=== PATIENT | male | born 1945 | race Caucasian/White ===

== ENCOUNTER 2023-07-10 12:46 | Emergency (ER) | payer SELFPAY ==
[~2023-07-10] VITALS: Ht 177.8 cm; Wt 81.8 kg
[2023-07-10] MEDS ORDERED: normal saline 1000ML IV soln IVB ONE (13:10)
[2023-07-10 13:43] LABS: BASOPHILS % (AUTO) 0.4 % (0-1); EOSINOPHILS % (AUTO) 0.3 % (0-6); HEMATOCRIT 22.4 % (42.0-52.0); HEMOGLOBIN 7.3 g/dl (14.0-17.9); LYMPHOCYTES # (AUTO) 1.1 X10'3 (1.1-4.8); LYMPHOCYTES % (AUTO) 54.6 % (21-51); MEAN CORPUSCULAR HEMOGLOBIN 37.1 PG (27.0-31.0); MEAN CORPUSCULAR HGB CONC 32.6 g/dL (33.0-36.5); MEAN CORPUSCULAR VOLUME 113.8 FL (78-98); MEAN PLATELET VOLUME 7.6 FL (7.4-10.4); MONOCYTES # (AUTO) 0.3 X10'3 (0-0.9); MONOCYTES % (AUTO) 16.3 % (2-12); NEUTROPHILS # (AUTO) 0.6 X10'3 (1.8-7.7); NEUTROPHILS % (AUTO) 28.4 % (42-75); PLATELET COUNT 265 X10'3 (140-440); RED BLOOD COUNT 1.97 X10'6 (4.70-6.10); RED CELL DISTRIBUTION WIDTH 22.6 % (11.5-14.5); WHITE BLOOD COUNT 2.1 X10'3 (4.5-11.0)
[2023-07-10 14:02] LABS: ALBUMIN 2.8 G/DL (3.4-5.0); ANION GAP 5 (8-16); BLOOD UREA NITROGEN 20 MG/DL (7-18); BUN/CREATININE RATIO 14.8 (10.0-20.0); CALCIUM 8.5 MG/DL (8.5-10.1); CHLORIDE 104 MMOL/L (99-107); CREATININE 1.35 MG/DL (0.60-1.10); GLUCOSE 144 MG/DL (70-104); SODIUM 137 MMOL/L (135-145); TOTAL CARBON DIOXIDE 28.1 MMOL/L (24-32); eCRCL 48 ML/MIN; eGFR 51 ML/MIN
[2023-07-10 14:19] LABS: ANISOCYTOSIS 3+; ELLIPTOCYTES 1+; PLATELET ESTIMATE NORMAL; SCHISTOCYTES FEW; TEAR DROP CELLS FEW; TOTAL CELLS COUNTED 100
[2023-07-10 14:20] LABS: BURR CELLS FEW; STOMATOCYTES 1+
[2023-07-10] MEDS: QUEtiapine 25mg tablet PO SCH ×2 (14:30→14:31)
[2023-07-10 15:33] VITALS: BP 134/76; PULSE 70; RESP 16; TEMP 97.8; O2SAT 97
[2023-07-10] MEDS ORDERED: QUEtiapine 25mg tablet PO SCH (21:00)
== END 2023-07-10 15:35 | disposition home or self-care (01) ==
LOC: ER 12:47
DX: F03.918 Unspecified dementia, unspecified severity, with other behavioral disturbance (principal); R45.1 Restlessness and agitation; M19.90 Unspecified osteoarthritis, unspecified site; Z51.5 Encounter for palliative care; R07.89 Other chest pain
CPT/HCPCS: 36415; 80048; 83605; 84145; 84484; 85007; 85025; 87040; 93005; 99284